=== PATIENT | female | born 1960 | race Caucasian/White ===

== ENCOUNTER 2017-06-20 14:18 | Outpatient (CLI) | payer OTHER ==
--- NOTE | 2017-06-21 09:26 | XRAY Report ---
TWO VIEW ABDOMEN: 06/20/2017 CLINICAL INDICATION: Pain. Supine and upright views of the abdomen demonstrate a normal bowel gas pattern. No free intraperiton eal gas is seen. No abnormal calcifications are appreciated overlying either renal shadow. IMPRESSION: NO EVIDENCE OF BOWEL OBSTRUCTION OR PERFORATION. JOB #: [id number] EXT JOB #:[id number]
== END 2017-06-20 14:19 | disposition home or self-care (01) ==
LOC: DI.S 14:18
PROVIDERS: ATTEND Internal Medicine
DX: R10.9 Unspecified abdominal pain (principal)
CPT/HCPCS: 74020

== ENCOUNTER 2019-09-17 04:06 | Emergency (ER) | payer OTHER ==
--- NOTE | 2019-09-17 04:15 | ED Physician Documentation ---
History of Present Illness - Stated complaint Stated Complaint: CP/BK PX/CHILLS - Chief complaint Chief Complaint: Cardiac - Additonal information Additional information: This is a 58-year-old female with a history of recurrent UTIs, diabetes, who presents with cough, malaise, and chest discomfort. Patient states that she began developing her symptoms 3 to 4 days ago, she has had a dry cough, and over the last several days has developed some pain underneath her bilateral breasts and in the lower sternum. She states it feels like she has a chest cold, and she is concerned she may have pneumonia. She denies any history of blood clots or [place] in the past. No vomiting, no shortness of breath. No leg swelling. She was treated for UTI with Bactrim this last week, she has some mild back discomfort and she wants to make sure that her urinary tract infection has not spread to her kidneys. She denies fever. Review of Systems Constitutional: denies: Fever Nose: reports: Congestion Cardiac: reports: Chest pain / pressure Respiratory: reports: Cough. denies: Dyspnea GI: denies: Vomiting : denies: Dysuria Skin: denies: Rash Endocrine: reports: Other (diabetes) PD PAST MEDICAL HISTORY - Past Medical History Cardiovascular: Hypertension Respiratory: Other Endocrine/Autoimmune: Type 2 diabetes GI: GERD, Colon polyps, Diverticulitis : None HEENT: None Psych: None Musculoskeletal: None Derm: None - Past Surgical History Past Surgical History: Yes General: Colonoscopy, EGD Ortho: Other HEENT: Tonsil/Adenoidectomy - Present Medications Home Medications: Ambulatory Orders Medication Instructions Recorded Confirmed Alprazolam [Xanax] 0.5 - 1 mg PO Q4H PRN 02/10/14 09/17/19 Atenolol 50 mg PO BID 02/10/14 09/17/19 hydroCHLOROthiazide [Hydrodiuril] 25 mg PO DAILY 02/10/14 09/17/19 Liraglutide [Victoza 2-Raul] 1.2 mg SQ DAILY 10/15/16 09/17/19 Beclomethasone 80 Mcg [Qvar 80] 2 puffs IH BID 09/17/19 09/17/19 Celecoxib 200 mg PO DAILY 09/17/19 09/17/19 Cranberry 500 mg PO DAILY 09/17/19 09/17/19 Dicyclomine HCl 10 mg PO BID 09/17/19 09/17/19 Estradiol [Estrace] 0.1 mg [id number] DAILY 09/17/19 09/17/19 Mag Carb/Al Hydrox/Alginic AC 355 ml PO DAILY PRN 09/17/19 09/17/19 [Gaviscon Extra Strength Liquid] Menthol [Biofreeze] 1 applic TOP DAILY 09/17/19 09/17/19 Methenamine Hippurate 1 gm PO BID 09/17/19 09/17/19 Sucralfate 1 gm PO DAILY PRN 09/17/19 09/17/19 Tizanidine HCl 4 mg PO TID PRN 09/17/19 09/17/19 amLODIPine [Norvasc] 10 mg PO DAILY 09/17/19 09/17/19 diphenhydrAMINE [Benadryl] 25 mg PO Q8HR PRN 09/17/19 09/17/19 - Allergies Allergies/Adverse Reactions: Allergies Allergy/AdvReac Type Severity Reaction Status Date / Time Opioids - Morphine Analogues Allergy Nausea Verified 09/17/19 04:16 oxycodone Allergy Nausea Verified 09/17/19 04:16 aspirin AdvReac Nausea Verified 09/17/19 04:16 pollen Allergy Intermediate Itching Uncoded 09/17/19 04:16 - Social History Does the pt smoke?: No Smoking Status: Never smoker PD ED PE NORMAL - Vitals Vital signs reviewed: Yes - General General: Alert and oriented X 3, No acute distress - HEENT HEENT: PERRL - Neck Neck: Supple, no meningeal sign - Cardiac Cardiac: RRR - Respiratory Respiratory: Clear bilaterally - Abdomen Abdomen: Soft, Non tender, Non distended - Derm Derm: Warm and dry - Extremities Extremities: No deformity - Neuro Neuro: Alert and oriented X 3 - Psych Psych: Normal mood, Normal affect Results - Vitals Vitals: Vital Signs - 24 hr 09/17/19 09/17/19 04:10 05:32 Temperature 36.5 C Heart Rate 88 75 Respiratory 16 18 Rate Blood Pressure 182/81 H 160/61 H O2 Saturation 99 96 Oxygen O2 Source Room air - EKG (time done) 4:16 Other comments: Other comments (Rate 84, rhythm sinus, there is left axis deviation. Left ventricular hypertrophy present by voltage criteria and aVL. No ST segment elevation or depression. QTc 478) - Labs Labs: Laboratory Tests 09/17/19 09/17/19 09/17/19 04:10 04:10 04:10 WBC 7.1 RBC 5.09 Hgb 12.6 Hct 38.9 MCV 76.4 L MCH 24.8 L MCHC 32.4 RDW 14.5 Plt Count 291 MPV 10.5 Neut # (Auto) 3.9 Lymph # (Auto) 2.2 Mclean # (Auto) 0.4 Eos # (Auto) 0.5 Baso # (Auto) 0.1 Absolute Nucleated RBC 0.00 Nucleated RBC % 0.0 Sodium 142 Potassium 3.3 L Chloride 103 Carbon Dioxide 27 Anion Gap 12.0 BUN 29 H Creatinine 0.9 Estimated GFR (MDRD) 64 L Glucose 145 H Calcium 10.5 H Total Bilirubin 0.6 AST 19 ALT 27 Alkaline Phosphatase 59 Troponin I High Sens 3.5 Total Protein 8.2 Albumin 4.8 Globulin 3.4 Albumin/Globulin Ratio 1.4 Lipase 42 Urine Color Urine Clarity Urine pH Ur Specific [place] Urine Protein Urine Glucose (UA) Urine Ketones Urine Occult Blood Urine Nitrite Urine Bilirubin Urine Urobilinogen Ur Leukocyte Esterase Ur Microscopic Review 09/17/19 05:12 WBC RBC Hgb Hct MCV MCH MCHC RDW Plt Count MPV Neut # (Auto) Lymph # (Auto) Mclean # (Auto) Eos # (Auto) Baso # (Auto) Absolute Nucleated RBC Nucleated RBC % Sodium Potassium Chloride Carbon Dioxide Anion Gap BUN Creatinine Estimated GFR (MDRD) Glucose Calcium Total Bilirubin AST ALT Alkaline Phosphatase Troponin I High Sens Total Protein Albumin Globulin Albumin/Globulin Ratio Lipase Urine Color YELLOW Urine Clarity CLEAR Urine pH 5.5 Ur Specific [place] <=1.005 Urine Protein NEGATIVE Urine Glucose (UA) NEGATIVE Urine Ketones NEGATIVE Urine Occult Blood NEGATIVE Urine Nitrite NEGATIVE Urine Bilirubin NEGATIVE Urine Urobilinogen 0.2 (NORMAL) Ur Leukocyte Esterase NEGATIVE Ur Microscopic Review NOT INDICATED - Rads (name of study) CXR 2 view Radiology: Other (No acute cardiopulmonary abnormality) PD MEDICAL DECISION MAKING - ED course Complexity details: considered differential (Pneumonia, gastritis, viral syndrome/URI,Peptic ulcer disease, dysrhythmia, ACS, pneumothorax, pulmonary embolism) ED course: On examination patient is nontoxic, vital signs are notable for hypertension. Chest X-rays obtained showing no acute cardiopulmonary abnormality. EKG shows left ventricular hypertrophy without signs of acute ischemia or dysrhythmia. C BC is unremarkable, CMP likewise unrevealing. Patient was given Toradol and Zofran for symptoms. Pulmonary embolism was considered, however the character of patient's chest discomfort, along with no shortness of breath, normal oxygen saturation, normal heart rate, no signs of DVT, no recent immobilization or travel, and no estrogen-containing medications make this extremely unlikely.High-sensitivity troponin is negative, given the duration of patient's symptoms, a single troponin is sufficient And ACS is highly unlikely. Urinalysis shows no signs of infection. Patient has a benign abdominal examination with no specific tenderness, no right upper quadrant tenderness, negative Galvan sign, no sign of biliary pathology. She was given a GI cocktail for her symptoms. Repeat examination patient is feeling somewhat improved, and she is relieved to the results of her tests. I recommended that she follow closely with her primary care provider, that she return to the emergency department with any new or worsening symptoms, such as increasing chest pain, shortness of breath, blood in the sputum, fever, persistent vomiting, or any other concerning symptoms. Patient agreed with this plan was discharged home Departure - Departure Disposition: 01 Home, Self Care Clinical Impression: Chest pain Qualifiers: Chest pain type: unspecified Qualified Code(s): R07.9 - Chest pain, unspecified Condition: Good Instructions: ED Chest Pain Atypical Unkn Cause Follow-Up: Martínez Nick MD [Primary Care Provider] - Within 1 week Comments: You were seen today for pain in your lower chest. Your labs and chest x-ray did not reveal an obvious cause of the pain. Please follow-up with your primary care provider, and return to the emergency department if you develop any worsening pain, shortness of breath, fever, blood in your sputum, persistent vomiting, or any other concerning symptoms. Your blood pressure was high during your visit, which may be due to stress of being in the ED. Please follow-up with your primary care provider and have your blood pressure checked at your next visit.
[2019-09-17] MEDS ORDERED: ONDANSETRON 4 MG/2 ML VIAL IVP STA (04:16)
[2019-09-17] MEDS ORDERED: KETOROLAC 30 MG/ML VIAL IVP STA (04:16)
[2019-09-17 04:47] LABS: BASOPHILS # (AUTO) 0.1 10^3/uL (0.0-0.1); BASOPHILS % (AUTO) 0.7 %; EOSINOPHILS # (AUTO) 0.5 10^3/uL (0.0-0.7); EOSINOPHILS % (AUTO) 6.9 %; HGB - HEMOGLOBIN 12.6 g/dL (12.0-16.0); LYMPHOCYTES # (AUTO) 2.2 10^3/uL (1.5-3.5); LYMPHOCYTES % (AUTO) 30.7 %; MEAN CORPUSCULAR HEMOGLOBIN 24.8 pg (27.0-31.0); MEAN CORPUSCULAR HGB CONC 32.4 g/dL (32.0-36.0); MEAN CORPUSCULAR VOLUME 76.4 fL (81.0-99.0); MEAN PLATELET VOLUME 10.5 fL (7.9-10.8); MONOCYTES # (AUTO) 0.4 10^3/uL (0.0-1.0); MONOCYTES % (AUTO) 6.1 %; NEUTROPHILS # (AUTO) 3.9 10^3/uL (1.5-6.6); PLT - PLATELET COUNT 291 10^3/uL (130-450); RED BLOOD COUNT 5.09 10^6/uL (4.20-5.40); RED CELL DISTRIBUTION WIDTH 14.5 % (12.0-15.0); WHITE BLOOD COUNT 7.1 x10^3/uL (4.8-10.8)
--- NOTE | 2019-09-17 04:48 | XRAY Report ---
Reason: Cough, chest pain Procedure Date: 09/17/2019 Accession Number: [id number] / [id number] Procedure: XR - Chest 2 View X-Ray CPT Code: 21107 FULL RESULT: EXAM: CHEST RADIOGRAPHY EXAM DATE: 09/17/2019 04:31 AM. CLINICAL HISTORY: Cough, chest pain. COMPARISON: None. TECHNIQUE: 2 views. FINDINGS: Lungs/Pleura: No focal opacities evident. No pleural effusion. No pneumothorax. Normal volumes. Mediastinum: Heart and mediastinal contours are unremarkable. Other: Moderate calcific athero-sclerosis. Moderate degenerative changes in the spine. IMPRESSION: No acute cardiopulmonary abnormality demonstrated. RADIA
[2019-09-17 04:59] LABS: ALBUMIN 4.8 g/dL (3.2-5.5); ALBUMIN/GLOBULIN RATIO 1.4 (1.0-2.2); BILIRUBIN,TOTAL 0.6 mg/dL (0.2-1.0); CALCIUM 10.5 mg/dL (8.5-10.3); CREATININE 0.9 mg/dL (0.4-1.0); TOTAL PROTEIN 8.2 g/dL (6.7-8.2)
[2019-09-17 05:21] LABS: BILIRUBIN,URINE NEGATIVE (NEGATIVE); GLUCOSE, URINE (UA) NEGATIVE (NEGATIVE); KETONES,URINE (UA) NEGATIVE (NEGATIVE); LEUKOCYTE ESTERASE, URINE NEGATIVE (NEGATIVE); NITRITE,URINE NEGATIVE (NEGATIVE); OCCULT BLOOD,URINE NEGATIVE (NEGATIVE); PH,URINE 5.5 PH (5.0-7.5); PROTEIN,URINE NEGATIVE (NEGATIVE); UROBILINOGEN,URINE 0.2 (NORMAL) E.U./dL (NORMAL)
[2019-09-17 05:22] LABS: CLARITY,URINE CLEAR (CLEAR)
[2019-09-17 05:33] VITALS: BP 160/61
[2019-09-17] MEDS ORDERED: LIDOCAINE VISCOUS 2% 15 ML UDC MM STA (05:35)
[2019-09-17] MEDS ORDERED: MAG HYDROX/AL HYDROX/SIMETH 30 ML UDC PO STA (05:35)
== END 2019-09-17 05:45 | disposition home or self-care (01) ==
LOC: ED 04:06
DX: R07.9 Chest pain, unspecified (principal); I10 Essential (primary) hypertension; E11.9 Type 2 diabetes mellitus without complications
CPT/HCPCS: 36415; 71046; 80053; 81003; 83690; 84484; 85025; 93005; 96374; 99283; 99284; A9270; 81001

== ENCOUNTER 2019-10-15 14:42 | Outpatient (CLI) | payer OTHER ==
--- NOTE | 2019-10-15 18:15 | Ultrasound Report ---
Reason: OVARIAN CYST Procedure Date: 10/15/2019 Accession Number: [id number] / [id number] Procedure: US - Pelvic w/Transvaginal CPT Code: Final Report FULL RESULT: EXAM: PELVIC ULTRASOUND EXAM DATE: 10/15/2019 04:36 PM. CLINICAL HISTORY: OVARIAN CYST. COMPARISON: ABDOMEN/PELVIS W/ 07/03/2016 4:06 PM. TECHNIQUE: Realtime transabdominal pelvic scan performed to identify the uterus and adnexa and as an overview of other pelvic structures, followed by transvaginal scan to provide greater detail of the uterus and adnexa, with static image documentation. FINDINGS: Uterus: 7.1 x 2.4 x 4.6 cm, volume 41 cc. Anteverted position. Background echogenicity is unremarkable, however there are at least 2 masses and a focal area of calcification in the anterior uterine body. Masses: Anterior intramural leiomyoma measures 1.5 x 1.2 x 1.7 cm and abuts the endometrial echocomplex, is slightly to the right of midline. A second leiomyoma is in the intramural portion anteriorly, to the left of midline and measures up to 9 mm in diameter. Endometrium: 7 mm. No focal masses or increased vascularity. Cervix: Unremarkable. Right Ovary: 7.0 x 4.0 x 7.8 cm, volume 114 cc. Color Doppler flow is demonstrated, and there is a complex septated cyst measuring 6.6 x 3.5 x 7.1 cm. Best seen transabdominally. The multiple septations are thin. No nodularity is identified. Left Ovary: 4.1 x 3.1 x 7.3 cm, volume 49 cc. A septated cyst is present measuring 3.2 x 3.0 x 7.0 cm. The septations are thicker than the right ovarian cyst, but appear less than 3 mm in thickness. No obvious nodularity. Free Fluid: Trace Other: None. IMPRESSION: 1. Bilateral ovarian cysts, with relatively thin septations, and compared to a CT of the abdomen pelvis from 07/03/2016, they may have slightly increased in size. Based on guidelines, given the size of greater than or equal to 7 cm, despite the thin appearing septations, would recommend dedicated pelvic MRI or surgical evaluation. 2. At least 2 intramural leiomyomas, largest measures up to 1.7 cm. RADIA
== END 2019-10-15 14:43 | disposition home or self-care (01) ==
LOC: DI 14:42
PROVIDERS: ATTEND Obstetrics & Gynecology
DX: N83.202 Unspecified ovarian cyst, left side (principal); N83.201 Unspecified ovarian cyst, right side; D25.1 Intramural leiomyoma of uterus
CPT/HCPCS: 76830; 76856

== ENCOUNTER 2019-10-19 10:27 | Outpatient (CLI) | payer OTHER | END 2019-10-19 10:28 | disposition home or self-care (01) | LOC: LAB 10:27 | PROVIDERS: ATTEND Obstetrics & Gynecology | DX: N83.209 Unspecified ovarian cyst, unspecified side (principal) | CPT/HCPCS: 36415; 82378; 86304 ==

== ENCOUNTER 2019-11-25 09:41 | Outpatient (CLI) | payer OTHER ==
--- NOTE | 2019-11-25 10:22 | XRAY Report ---
Reason: UNSPECIFIED OVARIAN CYST, UNSPECIFIED SIDE Procedure Date: 11/25/2019 Accession Number: [id number] / [id number] Procedure: XR - Chest 2 View X-Ray CPT Code: 90653 Final Report FULL RESULT: EXAM: CHEST RADIOGRAPHY EXAM DATE: 11/25/2019 10:12 AM. CLINICAL HISTORY: Unspecified ovarian cyst, unspecified side. Preoperative radiograph. COMPARISON: CHEST 2 VIEW 09/17/2019 4:20 AM. TECHNIQUE: 2 views. FINDINGS: Lungs/Pleura: No focal opacities evident. No pleural effusion. No pneumothorax. Normal volumes. Mediastinum: Heart and mediastinal contours are stable with subtle calcifications of the aortic arch and no cardiomegaly. Other: None. IMPRESSION: No acute cardiopulmonary abnormality. RADIA
--- NOTE | 2019-11-25 11:06 | CONSULTATION NOTE ---
Consultation Report: Anesthesia eval requested for 59F for TLH/LAVH. Pt presents w PSH of L TKA in 2018 in which she states thee were no anesthesia complications. PMH positive for obesity, DM2, GERD (well controlled w/meds), HTN. Pt denies any pulmonary or cardiac history.. EKG is sinus with probable old inferior PR. Pt denies hx of CP, PR, or dizziness, fainting. CBC, CMP, T&S, EKG, and CXR all previously ordered by surgeon, will evaluate DOS. Pt instructed on NPO status prior to surgery, meds to take, and what to expect during pre-op, surgery, and post-op stay. Discussed TAP blocks as a possible pain management plan. Pt did not have any further questions at this time.
== END 2019-11-25 09:42 | disposition home or self-care (01) ==
LOC: LAB 09:41 → DI 09:42
PROVIDERS: ATTEND Obstetrics & Gynecology
DX: Z01.818 Encounter for other preprocedural examination (principal); N83.202 Unspecified ovarian cyst, left side; N83.201 Unspecified ovarian cyst, right side
CPT/HCPCS: 36415; 71046; 80053; 85025; 86850; 86900; 86901; 93005

== ENCOUNTER 2019-11-26 13:30 | Outpatient (CLI) | payer OTHER ==
[2019-11-26 13:47] LABS: BASOPHILS % (AUTO) 0.6 %; EOSINOPHILS # (AUTO) 0.3 10^3/uL (0.0-0.7); EOSINOPHILS % (AUTO) 5.9 %; HGB - HEMOGLOBIN 11.4 g/dL (12.0-16.0); LYMPHOCYTES # (AUTO) 1.4 10^3/uL (1.5-3.5); LYMPHOCYTES % (AUTO) 27.4 %; MEAN CORPUSCULAR HEMOGLOBIN 24.2 pg (27.0-31.0); MEAN CORPUSCULAR HGB CONC 31.6 g/dL (32.0-36.0); MEAN CORPUSCULAR VOLUME 76.6 fL (81.0-99.0); MEAN PLATELET VOLUME 10.1 fL (7.9-10.8); MONOCYTES # (AUTO) 0.3 10^3/uL (0.0-1.0); MONOCYTES % (AUTO) 6.5 %; PLT - PLATELET COUNT 236 10^3/uL (130-450); RED BLOOD COUNT 4.71 10^6/uL (4.20-5.40); RED CELL DISTRIBUTION WIDTH 14.4 % (12.0-15.0); WHITE BLOOD COUNT 5.1 x10^3/uL (4.8-10.8)
[2019-11-26 14:03] LABS: ALBUMIN 4.1 g/dL (3.2-5.5); ALBUMIN/GLOBULIN RATIO 1.3 (1.0-2.2); BILIRUBIN,TOTAL 0.4 mg/dL (0.2-1.0); CALCIUM 9.2 mg/dL (8.5-10.3); CREATININE 0.6 mg/dL (0.4-1.0); TOTAL PROTEIN 7.2 g/dL (6.7-8.2)
== END 2019-11-26 13:31 | disposition home or self-care (01) ==
LOC: LAB 13:30
PROVIDERS: ATTEND Obstetrics & Gynecology
DX: Z01.812 Encounter for preprocedural laboratory examination (principal); N83.209 Unspecified ovarian cyst, unspecified side
CPT/HCPCS: 36415; 80053; 85025; 86850; 86900; 86901

== ENCOUNTER 2019-11-29 07:02 | Observation (INO) | payer OTHER ==
[2019-11-29] MEDS ORDERED: CEFAZOLIN SODIUM IN 0.9 % NACL 2 GM/100 ML BAG IV ONE (07:16)
[2019-11-29] MEDS ORDERED: LACTATED RINGERS 1,000 ML IV ONE ×2 (07:20→13:25)
--- NOTE | 2019-11-29 08:27 | ANESTHESIA ---
Pre-Anesthesia VS, & Labs - Diagnosis Bilateral ovarian cysts - Procedure Lap hysterectomy Vital Signs: Temp Pulse Resp BP Pulse Ox 36.3 C L 72 18 157/84 H 97 11/29/19 07:20 11/29/19 07:20 11/29/19 07:20 11/29/19 07:20 11/29/19 07:20 Height 5 ft 7 in Weight (kg) 104.8 kg Body Mass Index 36.8 - NPO >8 hours, Other (Had water with pills this am) - Is Patient ?: Not Applicable - Lab Results Current Lab Results: Laboratory Tests 11/29/19 07:40: POC Whole Bld Glucose 124 H Lab results reviewed: Yes Home Medications and Allergies Home Medications: Ambulatory Orders Esomeprazole Magnesium [Nexium] 20 mg PO DAILY 11/25/19 Potassium Chloride 20 meq PO DAILY 11/29/19 Alprazolam [Xanax] 0.5 - 1 mg PO Q4H PRN 02/10/14 Atenolol 50 mg PO BID 02/10/14 hydroCHLOROthiazide [Hydrodiuril] 25 mg PO DAILY 02/10/14 Liraglutide [Victoza 2-Raul] 1.2 mg SQ DAILY 10/15/16 Beclomethasone 80 Mcg [Qvar 80] 2 puffs IH BID 09/17/19 Celecoxib 200 mg PO DAILY 09/17/19 Cranberry 500 mg PO DAILY 09/17/19 Dicyclomine HCl 10 mg PO BID 09/17/19 Estradiol [Estrace] 0.1 mg [id number] DAILY 09/17/19 Mag Carb/Al Hydrox/Alginic AC [Gaviscon Extra Strength Liquid] 355 ml PO DAILY PRN 09/17/19 Menthol [Biofreeze] 1 applic TOP DAILY 09/17/19 Sucralfate 1 gm PO DAILY PRN 09/17/19 Tizanidine HCl 4 mg PO TID PRN 09/17/19 amLODIPine [Norvasc] 10 mg PO DAILY 09/17/19 diphenhydrAMINE [Benadryl] 25 mg PO Q8HR PRN 09/17/19 Esomeprazole Magnesium [Nexium] 20 mg PO DAILY 11/25/19 Potassium Chloride 20 meq PO DAILY 11/29/19 Allergies/Adverse Reactions: Allergies Allergy/AdvReac Type Severity Reaction Status Date / Time amoxicillin AdvReac Nausea Verified 11/29/19 07:37 ibuprofen AdvReac Nausea Verified 11/29/19 07:37 pollen Allergy Intermediate Itching Uncoded 11/29/19 07:37 Anes History & Medical History - Anesthetic History Anesthesia Complications: reports: No previous complications Family history of Anesthesia Complications: Denies Family history of Malignant Hyperthermia: Denies - Medical History Cardiovascular: reports: Hypertension Pulmonary: reports: Other Gastrointestinal: reports: GERD, Colon polyps, Diverticulitis Urinary: reports: None Neuro: reports: None Musculoskeletal: reports: None Endocrine/Autoimmune: reports: Type 2 diabetes Blood Disorders: reports: None Skin: reports: None Smoking Status: Never smoker Psychosocial: reports: No issues indicated - Surgical History General: Colonoscopy, EGD Eyes Ears Nose Throat (EENT): Tonsil/Adenoidectomy Orthopedic: Other Results - EKG Results EKG Comparison: Reviewed EKG Exam General: Alert, Oriented x3, Cooperative Dental: TMJ Mouth Openin Fingerbreadth Neck Mobility: Normal Mallampati classification: II Thyromental Distance: 4-6 cm Respiratory: Lungs clear Cardiovascular: Regular rate Mental/Cognitive Status: Alert/Oriented X3 Cognitive Status: Within normal limits Plan Anesthesia Type: General Consent for Procedure(s) Verified and Reviewed: Yes Code Status: Attempt Resuscitation ASA classification: 3-Severe systemic disease Is this case an emergency?: No
[2019-11-29] MEDS ORDERED: SCOPOLAMINE PATCH TOP ONE (09:02)
[2019-11-29] MEDS ORDERED: ACETAMINOPHEN 1,000 MG/100 ML 100 ML IV ONE ×2 (09:03→09:32)
[2019-11-29] MEDS ORDERED: CELECOXIB 100 MG CAPSULE PO ONE (09:03)
[2019-11-29] MEDS ORDERED: GABAPENTIN 400 MG CAPSULE ONE (09:03)
[2019-11-29] MEDS ORDERED: BUPIVACAINE 0.5% PF 30 ML VIAL ONE ×2 (09:05→10:15)
[2019-11-29] MEDS ORDERED: METHYLENE BLUE 0.5% 50 MG/10 ML AMPULE ONE (09:06)
[2019-11-29] MEDS ORDERED: GLYCOPYRROLATE 1 MG/5 ML VIAL IVP ONE (09:32)
[2019-11-29] MEDS ORDERED: ONDANSETRON 4 MG/2 ML VIAL IVP ONE (09:32)
[2019-11-29] MEDS ORDERED: ROCURONIUM 50 MG/5 ML VIAL IVP ONE (09:32)
[2019-11-29] MEDS ORDERED: METOCLOPRAMIDE 10 MG/2 ML VIAL IVP ONE (09:32)
[2019-11-29] MEDS ORDERED: fentaNYL 100 MCG/2 ML VIAL IVP ONE (09:32)
[2019-11-29] MEDS ORDERED: NEOSTIGMINE 1 MG/1 ML 10 ML MDV IVP ONE (09:32)
[2019-11-29] MEDS ORDERED: ePHEDrine 50 MG/ML VIAL IVP ONE (09:32)
[2019-11-29] MEDS ORDERED: MIDAZOLAM 2 MG/2 ML VIAL IVP ONE (09:32)
[2019-11-29] MEDS ORDERED: BUPIVACAINE 0.5% PF 30 ML VIAL INFIL ONE ×3 (10:15)
[2019-11-29] MEDS ORDERED: LIDOCAINE MPF 2%-EPI 1:200000 20 ML VIAL ONE (10:15)
[2019-11-29] MEDS ORDERED: LIDOCAINE MPF 2%-EPI 1:200000 20 ML VIAL SUBQ ONE ×3 (10:15)
[2019-11-29] MEDS ORDERED: HYDROmorphone 0.5 MG/0.5 ML SYRINGE IVP PRN (12:47)
[2019-11-29] MEDS ORDERED: ONDANSETRON 4 MG/2 ML VIAL IVP PRN (12:47)
--- NOTE | 2019-11-29 12:52 | OPERATIVE REPORT ---
Operative Report - General Procedure Date: 11/29/19 Planned Procedure: TLH with BSO and Cysto Pre-Op Diagnosis: large septate bilateral ovarian cysts Procedure Performed: TLH with BSO and Cysto Post Op Diagnosis: Same - Procedure Note Primary Surgeon: Donavan Stack MD Secondary Surgeon: Gillian Josue MD Anesthesia Provider: Tobias Neri CRNA Anesthesia Technique: General ET tube Pathology: Uterus with adnexa Pelvic washings IV Fluids (mL): 700 Estimated Blood Loss (mL): 25 Urine Output (mL): 250 Indications: large septated ovaries with negative tumor markers - Other Other Information/Narrative: [id number]
[2019-11-29] MEDS ORDERED: fentaNYL 100 MCG/2 ML VIAL ONE (13:09)
[2019-11-29] MEDS: LACTATED RINGERS 1,000 ML IV SCH ×2 (13:45→20:39)
[2019-11-29] MEDS: oxyCODONE 5 MG TABLET PO PRN ×2 (16:40→20:38)
--- NOTE | 2019-11-29 18:41 | PROCEDURE REPORT ---
DATE OF SERVICE: 11/29/2019 Physician: Donavan Stack MD PREOPERATIVE DIAGNOSIS: Septated bilateral large ovarian cyst. POSTOPERATIVE DIAGNOSES: Septated bilateral large ovarian cyst. PROCEDURE: Total laparoscopic hysterectomy with bilateral salpingo-oophorectomy, pelvic washings, an d cystoscopy. SURGEON: Donavan Stack MD CLEAT THROWER: Radha Josue MD ANESTHESIA: Giulia Neri CRNA ANESTHETIC: General via endotracheal tube. IV FLUIDS: 700 mL. ESTIMATED BLOOD LOSS: 25 mL. URINE OUTPUT: 250 mL. FINDINGS: Upon entering the abdominal cavity, there was no evidence of site of insertion. The appen elisa appeared to be normal. There was no evidence of adhesions in the pelvis. There were two large b ilateral ovarian cysts. The cul-de-sac, as well as the anterior uterine area, did not show evidence of any studding or abnormal-looking fluid. Cystoscopy performed at the end of the case showed eviden ce of good urine flow from both ureteral jets. PROCEDURE: Following adequate endotracheal anesthesia, the patient was placed in dorsal lithotomy po sition in Andrea stirrups. Pelvic examination under anesthesia was unrewarding secondary to abdominal wall thickness. At this point, she was prepped and draped in the usual fashion. A timeout was perf ormed, during which concerns were addressed. A speculum was placed in the vagina. The cervix was vi sualized, grasped with a single-tooth tenaculum. The cervix was somewhat stenotic. However, it was d ilated up to 7 mm. At this point, a small uterine manipulator was placed through the cervical os and then the ring was placed close into the vaginal fornices. The uterine balloon was inflated and then the vaginal balloon was also inflated with 45 mL of air. The accounting machine operator's gloves were then changed an d then a stab wound was made in the subumbilical region with a #11 blade following injection with 0.2 5% Marcaine with epinephrine mixed with 1% lidocaine. A trocar and sheath were introduced on a singl e pass without any difficulty. The pelvis was inspected. There was no evidence of any injury at sit e of insertion. Two additional ports were placed, both in the left and right lower quadrants. These were both done following local anesthesia with lidocaine and Marcaine, and then skin incision with a #11 blade. The pelvis was inspected. The ovaries were noted to be enlarged. The right infundibulopelvic ligame nt was doubly cauterized and transected. The round ligament was immediately encountered and this was doubly cauterized and transected. The anterior leaf of the broad ligament was divided free and then this was cauterized, transected with the LigaSure. This was carried all the way down to the cervix, the internal os of the cervix. Then, the posterior leaf was also cauterized and transected with the LigaSure. Care was taken to avoid any injury to the ureters. Then, traversing across the lower muckleshoot rine segment, a bladder flap was developed utilizing the LigaSure. The contralateral side was treate d in identical fashion. The left infundibulopelvic ligament was operated on by Dr. Josue. The li gament was doubly cauterized and transected with the LigaSure. Then, the broad ligament was cauteriz ed and tracks a second, and the round ligament was doubly cauterized and transected separately. The anterior leaf of the broad ligament was opened and this was cauterized and transected all the way wesley n to the bladder flap, which has been developed from the right-hand side. The posterior leaf was als o transected. The bladder was then pushed off the lower uterine segment and the uterine manipulator was able to be palpated through the vaginal wall. Uterine vessels on the left-hand side were identif ied, cauterized, and transected. The right-hand side was also identified, cauterized, and transected . At this point, the uterus appeared to be free of its vascular attachments. A Harmonic scalpel was th en used to transect the cervix from the apex of the vagina. This was carried all the way around in a circumferential pattern. At this point, the uterus was brought down into the vagina. Both ovaries came at the same time, thus making it difficult for them to remove. So for this reason, the right lo wer quadrant incision was extended and an 11-mm port was placed. The right tube and ovary were place d in the Endo Catch and then left in the abdominal cavity, as it was felt too large to bring through the port. The uterus was then removed and the string of the Endocatch was grasped vaginally and brou ght out through the vagina. That left only the right ovary. This was then grasped and then brought down through the vagina, both with traction as well as pushing from the top. This was brought all th e way out. A suction bulb was then placed in the vagina to maintain pneumoperitoneum. The pedicles were inspected and no bleeding, so the apex of the vagina was closed with V-Loc suture with an Endo S titch. The apex was inspected and there was one additional place of bleeding, which was treated with the LigaSure. This area was inspected. There was no evidence of any bleeding at this time. At this point, the right lower quadrant port was removed and utilizing a RembertoJuni, a single drake ture of 0 Vicryl was placed without difficulty. The CO2 was allowed to escape and all three ports we re then closed subcuticularly with Monocryl. The incisions themselves were closed utilizing Dermabon d. A cystoscopy was performed with sterile saline. The entire bladder cavity was visualized. There was no evidence of any stitches. There was evidence of good jets of urine from both ureteral orific es. At this point, the procedure was terminated. The patient tolerated the procedure well and was t aken to recovery in stable condition. Sponge and needle counts were correct. TD: 11/29/2019 13:05
[2019-11-29] MEDS: atenoloL 25 MG TABLET PO SCH (20:38)
[2019-11-30] MEDS: oxyCODONE 5 MG TABLET PO PRN ×3 (00:36→11:34)
[2019-11-30 07:41] VITALS: BP 162/76
--- NOTE | 2019-11-30 07:42 | PHARMACY PROGRESS NOTE ---
- Best Possible Medication History Admit Date and Time: 11/29/19 1247 Processed by: Nursing Medication History completed: Yes Patient Interview: Completed As the person ultimately responsible for medication therapy, providers are able to order a medication from an existing home medication list in [facility] via the "Reconcile Routine" prior to Confirmation of that medication by business support assistant. Such practice is discouraged except when the physician, in their clinical judg ment, deems that a medical need exists for a medication without regard to previous use.
[2019-11-30] MEDS: atenoloL 25 MG TABLET PO SCH (08:23)
[2019-11-30] MEDS ORDERED: KETOROLAC 30 MG/ML VIAL IVP PRN (08:34)
--- NOTE | 2019-11-30 08:39 | PROVIDER PROGRESS NOTE ---
Subjective - General Admit Date: 11/29/19 Procedure Date: 11/29/19 Post Op Days: 1 Procedure Performed: TLH with BSO and Cysto - Review of Systems Wound/Incisions: positive: Healing well General: positive: No symptoms (Pain 6/10. relaits that she is having good pain control.) HEENT: positive: No symptoms Pulmonary: positive: No symptoms Cardiovascular: positive: No symptoms Gastrointestinal: positive: Flatus Genitourinary: positive: No symptoms Skin: positive: No symptoms Objective - Patient Data Reviewed Vital Signs: Yes Vital Signs: Vital Signs x48h Temp Pulse Resp BP Pulse Ox 11/30/19 07:13 36.6 C 77 18 162/76 H 95 11/30/19 05:30 36.7 C 72 18 138/73 H 93 Weight: Weight 11/28/19 11/29/19 11/30/19 23:59 23:59 23:59 Weight (kg) 104.8 kg Intake & Output: Intake and Output Totals x24h 11/28/19 11/29/19 11/30/19 23:59 23:59 23:59 Intake Total 2510 1600 Output Total 3125 1125 Balance -615 475 - Lab Results Other Lab Results: Lab Results x24hrs 11/29/19 Range/Units 12:42 POC Whole Bld Glucose 155 H (70 - 100) mg/dL - Current Medications Current Medications: Current Medications Generic Name Dose Route Start Last Admin Trade Name Freq PRN Reason Stop Dose Admin Amlodipine Besylate 5 mg 11/30/19 09:00 11/30/19 08:23 Norvasc PO 5 mg DAILY ALLYSSA Administration Atenolol 50 mg 11/29/19 21:00 11/30/19 08:23 Tenormin PO 50 mg BID ALLYSSA Administration Hydrochlorothiazide 25 mg 11/30/19 09:00 11/30/19 08:23 Hydrodiuril PO 25 mg DAILY ALLYSSA Administration Hydromorphone HCl 0.5 mg 11/29/19 12:47 11/29/19 13:10 Dilaudid Inj Syringe IVP 0.4 mg Q30M PRN Administration Breakthrough Pain Lactated Ringer's 1,000 mls @ 100 mls/hr 11/29/19 13:00 11/30/19 07:45 Lr IV Infused .Q10H ALLYSSA Infusion Oxycodone HCl 5 mg 11/29/19 12:47 11/30/19 05:45 Roxicodone PO 5 mg Q4HR PRN Administration PAIN - Physical Exam Wound/Incisions: positive: Healing well General Appearance: positive: No acute distress, Alert Respiratory: positive: Chest non-tender, No respiratory distress, Breath sounds nml Cardiovascular: positive: Regular rate & rhythm, No murmur, No gallop Abdomen: positive: Nml bowel sounds, No distention, Tenderness (mild) Back: negative: CVA tenderness (R), CVA tenderness (L) Extremities: negative: Calf tenderness, Thomas's sign/cords Neurologic/Psychiatric: positive: Oriented x3 Impression/Plan - Problem List Problem List: POD # 1 progressing well. S/P TLH with BSO Pt has not recieved any NSAID since surgery. will give toradol Send home. Discharge Meds Oxycodone 5 mg Celobrex home supply colace home supply RTC one week.
--- NOTE | 2019-11-30 08:47 | Discharge Plan ---
Discharge Plan Problem Reviewed?: Yes Disposition: Home, Self Care Condition: Good Diet: Diabetic Shower Restrictions: No Driving Restrictions: Yes (not while taking narcotics) Weight Bearing: Full Weight No Smoking: If you smoke, Please STOP! Call for help. Follow-up with: Martínez Nick MD [Primary Care Provider] -
[2019-11-30] MEDS ORDERED: amLODIPine 5 MG TABLET PO SCH (09:00)
[2019-11-30] MEDS ORDERED: hydroCHLOROthiazide 25 MG TABLET PO SCH (09:00)
[2019-11-30] MEDS ORDERED: ENOXAPARIN 40 MG/0.4 ML SYRINGE SUBQ SCH (18:00)
== END 2019-11-30 13:01 | disposition home or self-care (01) ==
LOC: SDS 07:02 → MS3 12:47
PROVIDERS: ADMIT Obstetrics & Gynecology; ATTEND Obstetrics & Gynecology
PROC: 0UT24ZZ Resection of Bilateral Ovaries, Percutaneous Endoscopic Approach (ICD-10-PCS; 2019-11-29)
PROC: 0UT74ZZ Resection of Bilateral Fallopian Tubes, Percutaneous Endoscopic Approach (ICD-10-PCS; 2019-11-29)
PROC: 0UT94ZZ Resection of Uterus, Percutaneous Endoscopic Approach (ICD-10-PCS; principal; 2019-11-29 08:30)
DX: N83.292 Other ovarian cyst, left side (principal); N83.291 Other ovarian cyst, right side; N72 Inflammatory disease of cervix uteri; N84.0 Polyp of corpus uteri; D25.1 Intramural leiomyoma of uterus; D25.2 Subserosal leiomyoma of uterus; I10 Essential (primary) hypertension; E11.9 Type 2 diabetes mellitus without complications; Z79.899 Other long term (current) drug therapy
CPT/HCPCS: 58571; 88108; 88305; 88307; A9270; J0131; J0690; J1170; J2765; J3490; J7120

== ENCOUNTER 2020-03-15 16:36 | Outpatient (CLI) | payer OTHER | END 2020-03-15 16:37 | disposition home or self-care (01) | LOC: COV 16:36 | PROVIDERS: ATTEND Family Medicine | DX: R50.9 Fever, unspecified (principal); R05 Cough; M79.10 Myalgia, unspecified site; R19.7 Diarrhea, unspecified | CPT/HCPCS: 81599 ==

== ENCOUNTER 2020-07-12 07:00 | Outpatient (CLI) | payer OTHER | END 2020-07-12 23:59 | disposition home or self-care (01) | LOC: LAB.R 07:00 | PROVIDERS: ATTEND Emergency Medicine | DX: R30.0 Dysuria (principal) | CPT/HCPCS: 87086 ==

== ENCOUNTER 2020-08-18 13:50 | Outpatient (CLI) | payer OTHER ==
--- NOTE | 2020-08-21 11:48 | Mammography Report ---
BILATERAL DIGITAL SCREENING MAMMOGRAM 3D/2D: 08/18/2020 CLINICAL: Routine screening. Comparison is made to exam dated: 07/12/2014 mammogram - [facility]. The tissue of both breasts is predominantly fatty. No significant masses, calcifications, or other findings are seen in either breast. There has been no significant interval change. IMPRESSION: NEGATIVE There is no mammographic evidence of malignancy. A 1 year screening mammogram is recommended. This exam was interpreted at Station ID: [id number]. NOTE: For mammograms, a report in lay terms will be sent to the patient. Approximately 15% of breast malignancies will not be visualized mammographically. In the management of a palpable breast mass, a negative mammogram must not discourage biopsy of a clinically suspicious lesion. Electronically Signed By: Kamila guerrero/[email or web address]:08/18/2020 16:15:25 ACR BI-RADS Category 1: Negative 3341F PARENCHYMAL PATTERN: (F) - The breast(s) demonstrate(s) diffuse fatty replacement. BI-RADS CATEGORY: (1) - 1 RECOMMENDATION: (ANNUAL) - Recommend routine annual screening mammography. [id number] 1 year screening LATERALITY: (B)
== END 2020-08-18 13:51 | disposition home or self-care (01) ==
LOC: DI 13:50
DX: Z12.31 Encounter for screening mammogram for malignant neoplasm of breast (principal)
CPT/HCPCS: 77063; 77067

== ENCOUNTER 2021-07-12 13:08 | Emergency (ER) | payer OTHER ==
--- NOTE | 2021-07-12 14:21 | ED Physician Documentation ---
PD HPI ABD PAIN - Stated complaint Stated Complaint: RIB PX - Chief complaint Chief Complaint: Abd Pain - History obtained from History obtained from: Patient - History of Present Illness Timing - onset: How many days ago (5) Timing - duration: Days (5) Timing - details: Gradual onset (Patient has had 5 days of right upper quadrant abdominal pain and some pain with breathing. She fell backward from a lawn chair 2 days ago and states the pain is worse. She has also had congestion cough and some dyspnea for 4 to 5 days as well.), Still present, Waxing and waning Quality: Cramping, Aching, Pain Location: RUQ Radiation: Chest (right lower chestwall), Right flank Associated symptoms: Nausea, Diarrhea (intermittent), Loss of appetite. No: Fever, Vomiting, Dysuria Similar symptoms before: Has not had sx before (Known prior gallbladder problem with abnormal HIDA scan and they are considering cholecystectomy. However she has not had consistent pain in the right upper quadrant previously.) Recently seen: Not recently seen Review of Systems Constitutional: denies: Fever, Chills Nose: denies: Rhinorrhea / runny nose, Congestion Throat: denies: Sore throat Respiratory: denies: Cough Skin: denies: Rash, Lesions Musculoskeletal: reports: Back pain. denies: Neck pain PD PAST MEDICAL HISTORY - Past Medical History Cardiovascular: Hypertension Respiratory: Other Neuro: None Endocrine/Autoimmune: Type 2 diabetes GI: GERD, Colon polyps, Diverticulitis, Other (gallbladder spasms with abnormal HIDA, plans for CCY in near future. ) : None HEENT: None Psych: None Musculoskeletal: None Derm: None - Past Surgical History Past Surgical History: Yes General: Colonoscopy, EGD Ortho: Other HEENT: Tonsil/Adenoidectomy - Present Medications Home Medications: Ambulatory Orders Medication Instructions Recorded Confirmed ALPRAZolam [Xanax] 0.5 - 1 mg PO Q4H PRN 02/10/14 11/29/19 Atenolol 50 mg PO BID 02/10/14 11/29/19 hydroCHLOROthiazide [Hydrodiuril] 25 mg PO DAILY 02/10/14 11/29/19 Liraglutide [Victoza 2-Raul] 1.2 mg SQ DAILY 10/15/16 11/29/19 Beclomethasone 80 Mcg [Qvar 80] 2 puffs IH BID 09/17/19 11/29/19 Celecoxib 200 mg PO DAILY 09/17/19 11/29/19 Cranberry 500 mg PO DAILY 09/17/19 11/29/19 Dicyclomine HCl 10 mg PO BID 09/17/19 11/29/19 Estradiol [Estrace] 0.1 mg [id number] DAILY 09/17/19 11/29/19 Mag Carb/Al Hydrox/Alginic AC 355 ml PO DAILY PRN 09/17/19 11/29/19 [Gaviscon Extra Strength Liquid] Menthol [Biofreeze] 1 applic TOP DAILY 09/17/19 11/29/19 Sucralfate 1 gm PO DAILY PRN 09/17/19 11/29/19 Tizanidine HCl 4 mg PO TID PRN 09/17/19 11/29/19 amLODIPine [Norvasc] 10 mg PO DAILY 09/17/19 11/29/19 diphenhydrAMINE [Benadryl] 25 mg PO Q8HR PRN 09/17/19 11/29/19 Esomeprazole Magnesium [Nexium] 20 mg PO DAILY 11/25/19 11/29/19 Potassium Chloride 20 meq PO DAILY 11/29/19 11/29/19 oxyCODONE [Roxicodone] 5 mg PO Q4-6H PRN #12 tablet 07/12/21 - Allergies Allergies/Adverse Reactions: Allergies Allergy/AdvReac Type Severity Reaction Status Date / Time pollen extracts Allergy Intermediate SNEEZING Verified 07/12/21 13:44 amoxicillin AdvReac Nausea Verified 07/12/21 13:44 ibuprofen AdvReac Nausea Verified 07/12/21 13:44 - Social History Does the pt smoke?: No Smoking Status: Never smoker Does the pt have substance abuse?: No - POLST Patient has POLST: No PD ED PE NORMAL - Vitals Vital signs reviewed: Yes - General General: Alert and oriented X 3, Well developed/nourished, Other (appears uncomfortable) - Neck Neck: Supple, no meningeal sign, No adenopathy - Cardiac Cardiac: RRR, No murmur - Respiratory Respiratory: Clear bilaterally - Abdomen Abdomen: Normal bowel sounds, Soft, Non distended, No organomegaly (tender RUQ and also lower rib margin right. No CVA tenderness. No skin sensitivity nor rash.) - Derm Derm: Normal color, Warm and dry - Extremities Extremities: Normal ROM s pain, No edema, No calf tenderness / cord - Neuro Neuro: Alert and oriented X 3, No motor deficit, Normal speech Results - Vitals Vitals: Oxygen O2 Source Room air - EKG (time done) 15:31 Rate: Rate (enter#) (71) Rhythm: NSR [place]: Normal Intervals: Normal GA QRS: Normal Ischemia: Normal ST segments. No: ST elevation c/w ischemia, ST depression - Labs Labs: Laboratory Tests 07/12/21 07/12/21 07/12/21 15:06 15:16 15:16 WBC 5.6 RBC 5.30 Hgb 13.7 Hct 41.1 MCV 77.5 L MCH 25.8 L MCHC 33.3 RDW 13.5 Plt Count 230 MPV 10.6 Neut # (Auto) 3.7 Lymph # (Auto) 1.2 L Terry # (Auto) 0.3 Eos # (Auto) 0.3 Baso # (Auto) 0.1 Absolute Nucleated RBC 0.00 Nucleated RBC % 0.0 Sodium 142 Potassium 3.4 L Chloride 99 L Carbon Dioxide 31 Anion Gap 12.0 BUN 11 Creatinine 0.6 Estimated GFR (MDRD) 102 Glucose 135 H Calcium 10.1 Total Bilirubin 0.6 AST 18 ALT 22 Alkaline Phosphatase 57 Troponin I High Sens B-Natriuretic Peptide Total Protein 8.1 Albumin 4.7 Globulin 3.4 Albumin/Globulin Ratio 1.4 Lipase 33 Urine Color YELLOW Urine Clarity CLEAR Urine pH 7.5 Ur Specific [place] 1.015 Urine Protein NEGATIVE Urine Glucose (UA) NEGATIVE Urine Ketones NEGATIVE Urine Occult Blood NEGATIVE Urine Nitrite NEGATIVE Urine Bilirubin NEGATIVE Urine Urobilinogen 0.2 (NORMAL) Ur Leukocyte Esterase NEGATIVE Ur Microscopic Review NOT INDICATED Urine Culture Comments NOT INDICATED Coronavirus (PCR) 07/12/21 07/12/21 07/12/21 15:16 15:16 15:16 WBC RBC Hgb Hct MCV MCH MCHC RDW Plt Count MPV Neut # (Auto) Lymph # (Auto) Terry # (Auto) Eos # (Auto) Baso # (Auto) Absolute Nucleated RBC Nucleated RBC % Sodium Potassium Chloride Carbon Dioxide Anion Gap BUN Creatinine Estimated GFR (MDRD) Glucose Calcium Total Bilirubin AST ALT Alkaline Phosphatase Troponin I High Sens 5.1 B-Natriuretic Peptide 81 Total Protein Albumin Globulin Albumin/Globulin Ratio Lipase Urine Color Urine Clarity Urine pH Ur Specific [place] Urine Protein Urine Glucose (UA) Urine Ketones Urine Occult Blood Urine Nitrite Urine Bilirubin Urine Urobilinogen Ur Leukocyte Esterase Ur Microscopic Review Urine Culture Comments Coronavirus (PCR) NEGATIVE - Rads (name of study) ruq u/s Radiology: Prelim report reviewed (no acute inflammation or problems, per Tech.), See rad report chest xray Radiology: Prelim report reviewed (no acute process), See rad report PD MEDICAL DECISION MAKING - ED course Complexity details: reviewed results, considered differential, d/w patient Departure - Departure Disposition: Home, Self Care Clinical Impression: Right upper quadrant abdominal pain, Right-sided chest wall pain Condition: Stable Record reviewed to determine appropriate education?: Yes Instructions: ED Abdominal Pain Unkn Cause, ED Strain Chest Wall Follow-Up: Martínez Nick MD [Primary Care Provider] - Prescriptions: oxyCODONE [Roxicodone] 5 mg PO Q4-6H PRN #12 tablet PRN Reason: Pain Comments: Your EKG and blood test do not show any signs of heart failure or heart attack. Your chest x-ray shows normal clear lungs without any signs of pneumonia, effusion, rib abnormality. Your ultrasound shows normal-appearing gallbladder so not acute cholecystitis. Blood tests show normal liver and pancreas numbers with no acute inflammation of those. At this point I am not sure the cause of the pain in the belly. The lower chest area may be muscle strain from when you fell. Activity as tolerated. Food as tolerated. Consider an acid reducing medicine such as Maalox or Mylanta or such, in case some of the abdominal pain is irritated stomach. Add oxycodone every 4-6 hours if needed for pain in the short-term given your intolerance to ibuprofen and Tylenol. Follow-up with your primary care if not improved over the next several days. Discharge Date/Time: 07/12/21 18:28
[2021-07-12] MEDS ORDERED: KETOROLAC 15 MG/ML VIAL IVP STA (14:58)
[2021-07-12] MEDS ORDERED: ONDANSETRON 4 MG/2 ML VIAL IVP STA (14:58)
[2021-07-12 15:16] LABS: BILIRUBIN,URINE NEGATIVE (NEGATIVE); GLUCOSE, URINE (UA) NEGATIVE (NEGATIVE); KETONES,URINE (UA) NEGATIVE (NEGATIVE); LEUKOCYTE ESTERASE, URINE NEGATIVE (NEGATIVE); NITRITE,URINE NEGATIVE (NEGATIVE); OCCULT BLOOD,URINE NEGATIVE (NEGATIVE); PH,URINE 7.5 PH (5.0-7.5); PROTEIN,URINE NEGATIVE (NEGATIVE); UROBILINOGEN,URINE 0.2 (NORMAL) E.U./dL (NORMAL)
[2021-07-12 15:17] LABS: CLARITY,URINE CLEAR (CLEAR)
--- NOTE | 2021-07-12 15:24 | XRAY Report ---
PROCEDURE: Chest 2 View X-Ray INDICATIONS: right lower chest pain for days TECHNIQUE: 2 views of the chest. COMPARISON: 11/25/2019. FINDINGS: Surgical changes and devices: None. Lungs and pleura: No acute consolidation. There are linear opacities redemonstrated in the right emanuel g base compatible with scarring. No pleural effusions or pneumothorax. Mediastinum: Mediastinal contours are unchanged. Heart size is normal. Bones and chest wall: No suspicious bony abnormalities. Soft tissues appear unremarkable. IMPRESSION: 1. No acute cardiopulmonary disease. Reviewed by: Riccardo Peralta MD on 07/12/2021 3:22 PM PDT Approved by: Riccardo Peralta MD on 07/12/2021 3:22 PM PDT Station ID: [id number]
[2021-07-12 15:33] LABS: BASOPHILS # (AUTO) 0.1 10^3/uL (0.0-0.1); BASOPHILS % (AUTO) 1.1 %; EOSINOPHILS # (AUTO) 0.3 10^3/uL (0.0-0.7); EOSINOPHILS % (AUTO) 4.8 %; HCT - HEMATOCRIT 41.1 % (37.0-47.0); HGB - HEMOGLOBIN 13.7 g/dL (12.0-16.0); LYMPHOCYTES # (AUTO) 1.2 10^3/uL (1.5-3.5); LYMPHOCYTES % (AUTO) 21.7 %; MEAN CORPUSCULAR HEMOGLOBIN 25.8 pg (27.0-31.0); MEAN CORPUSCULAR HGB CONC 33.3 g/dL (32.0-36.0); MEAN CORPUSCULAR VOLUME 77.5 fL (81.0-99.0); MEAN PLATELET VOLUME 10.6 fL (7.9-10.8); MONOCYTES # (AUTO) 0.3 10^3/uL (0.0-1.0); MONOCYTES % (AUTO) 5.2 %; NEUTROPHILS # (AUTO) 3.7 10^3/uL (1.5-6.6); NEUTROPHILS % (AUTO) 66.5 %; PLT - PLATELET COUNT 230 10^3/uL (130-450); RED CELL DISTRIBUTION WIDTH 13.5 % (12.0-15.0); WHITE BLOOD COUNT 5.6 x10^3/uL (4.8-10.8)
[2021-07-12 15:44] LABS: ALBUMIN 4.7 g/dL (3.2-5.5); ALBUMIN/GLOBULIN RATIO 1.4 (1.0-2.2); BILIRUBIN,TOTAL 0.6 mg/dL (0.2-1.0); CALCIUM 10.1 mg/dL (8.5-10.3); CREATININE 0.6 mg/dL (0.4-1.0); POTASSIUM 3.4 mmol/L (3.5-5.0); TOTAL PROTEIN 8.1 g/dL (6.7-8.2)
--- NOTE | 2021-07-12 18:20 | Ultrasound Report ---
PROCEDURE: Abdomen Limited INDICATIONS: RUQ pain; prior known GB problem TECHNIQUE: Real-time scanning was performed of the right abdomen, with image documentation. COMPARISON: CT abdomen and pelvis 07/03/2016. FINDINGS: Liver: Enlarged in size. Increased in echogenicity. Gallbladder: Gallbladder is nondistended. No stones or sludge. No gallbladder wall thickening. No per icholecystic fluid. Negative sonographic Galvan sign. Biliary ducts: Intrahepatic bile ducts are non-dilated. Extrahepatic bile duct caliber measures 3 m m. Normal is 6-7 mm or less in diameter, or 10 mm or less post-cholecystectomy. Pancreas: Visualized portions of the pancreas are sonographically normal. Tail was not well seen. Spleen: Spleen is normal in size and homogeneous in echotexture. Right kidney: Measures 12.3 cm. Cortex 1.5 cm. Caliectasis. Mild prominence of the renal pelvis. -Right kidney echogenic mass measuring 1.1 x 1.1 x 1 cm. -Right kidney superior pole hypoechoic cyst measuring 1.5 x 1.4 x 1.1 cm. No internal vascularity. IMPRESSION: 1. No acute cholecystitis. No gallstones. 2. Enlarged liver. Increased echogenicity of the hepatic parenchyma. This is most commonly seen in he patic steatosis. Other forms of hepatocellular disease could have a similar appearance. 3. Right kidney have a complex cyst measuring 1.5 cm. 4. Right kidney echogenic mass measuring 1.1 cm. Suspect angiomyolipoma. Consider further characterization of the kidneys with renal protocol MRI or CT. Reviewed by: Ramon Benavides MD on 07/12/2021 6:18 PM PDT Approved by: Ramon Benavides MD on 07/12/2021 6:18 PM PDT Station ID: [id number]
[2021-07-12 18:23] VITALS: BP 180/74
== END 2021-07-12 18:28 | disposition home or self-care (01) ==
LOC: ED 13:08
DX: R10.11 Right upper quadrant pain (principal); R07.89 Other chest pain; Z20.822 Contact with and (suspected) exposure to COVID-19
CPT/HCPCS: 36415; 80053; 81001; 81003; 83690; 83880; 84484; 85025; 87086; 93005; 96374; 96375; 99284

== ENCOUNTER 2021-12-18 08:00 | Outpatient (CLI) | payer OTHER ==
[2021-12-18 15:39] LABS: BILIRUBIN,URINE NEGATIVE (NEGATIVE); GLUCOSE, URINE (UA) NEGATIVE (NEGATIVE); KETONES,URINE (UA) NEGATIVE (NEGATIVE); LEUKOCYTE ESTERASE, URINE NEGATIVE (NEGATIVE); NITRITE,URINE NEGATIVE (NEGATIVE); OCCULT BLOOD,URINE NEGATIVE (NEGATIVE); PROTEIN,URINE NEGATIVE (NEGATIVE); UROBILINOGEN,URINE 0.2 (NORMAL) E.U./dL (NORMAL)
[2021-12-18 15:50] LABS: BACTERIA,URINE Moderate /HPF (None Seen); CLARITY,URINE CLEAR (CLEAR); RBC,URINE None Seen /HPF (0-5); SQUAMOUS EPITHELIAL CELL,UR MANY Squamous (<= Few); WBC,URINE 0-3 /HPF (0-5)
== END 2021-12-18 23:59 | disposition home or self-care (01) ==
LOC: LAB.S 08:00
PROVIDERS: ATTEND Emergency Medicine
DX: R30.0 Dysuria (principal)
CPT/HCPCS: 81001; 87086

== ENCOUNTER 2022-04-17 10:39 | Outpatient (CLI) | payer OTHER ==
--- NOTE | 2022-04-17 13:42 | Mammography Report ---
BILATERAL DIGITAL SCREENING MAMMOGRAM 3D/2D: 04/17/2022 CLINICAL: Routine screening. Comparison is made to exams dated: 08/18/2020 mammogram, 07/12/2014 mammogram, and 06/25/2012 mammogram - [facility]. The tissue of both breasts is predominantly fatty. No significant masses, calcifications, or other findings are seen in either breast. There has been no significant interval change. IMPRESSION: NEGATIVE There is no mammographic evidence of malignancy. A 1 year screening mammogram is recommended. This exam was interpreted at Station ID: [id number]. NOTE: For mammograms, a report in lay terms will be sent to the patient. Approximately 15% of breast malignancies will not be visualized mammographically. In the management of a palpable breast mass, a negative mammogram must not discourage biopsy of a clinically suspicious lesion. Electronically Signed By: Ramon Benavides M.D. slc/penrad:04/17/2022 12:20:33 ACR BI-RADS Category 1: Negative 3341F PARENCHYMAL PATTERN: (F) - The breast(s) demonstrate(s) diffuse fatty replacement. BI-RADS CATEGORY: (1) - 1 RECOMMENDATION: (ANNUAL) - Recommend routine annual screening mammography. [id number] 1 year screening LATERALITY: (B)
== END 2022-04-17 10:40 | disposition home or self-care (01) ==
LOC: DI.S 10:39
PROVIDERS: ATTEND Nurse Practitioner Family
DX: Z12.31 Encounter for screening mammogram for malignant neoplasm of breast (principal)

== ENCOUNTER 2022-06-28 14:05 | Outpatient (CLI) | payer OTHER ==
[2022-06-28 19:42] LABS: BASOPHILS # (AUTO) 0.1 10^3/uL (0.0-0.1); EOSINOPHILS # (AUTO) 0.3 10^3/uL (0.0-0.7); EOSINOPHILS % (AUTO) 6.1 %; HCT - HEMATOCRIT 36.3 % (37.0-47.0); HGB - HEMOGLOBIN 12.5 g/dL (12.0-16.0); LYMPHOCYTES # (AUTO) 1.6 10^3/uL (1.5-3.5); MEAN CORPUSCULAR HEMOGLOBIN 26.9 pg (27.0-31.0); MEAN CORPUSCULAR HGB CONC 34.4 g/dL (32.0-36.0); MEAN CORPUSCULAR VOLUME 78.1 fL (81.0-99.0); MEAN PLATELET VOLUME 11.3 fL (7.9-10.8); MONOCYTES # (AUTO) 0.3 10^3/uL (0.0-1.0); MONOCYTES % (AUTO) 5.7 %; NEUTROPHILS # (AUTO) 2.7 10^3/uL (1.5-6.6); NEUTROPHILS % (AUTO) 54.8 %; PLT - PLATELET COUNT 203 10^3/uL (130-450); RED BLOOD COUNT 4.65 10^6/uL (4.20-5.40); RED CELL DISTRIBUTION WIDTH 13.2 % (12.0-15.0); WHITE BLOOD COUNT 4.9 x10^3/uL (4.8-10.8)
[2022-06-28 19:58] LABS: % IRON SATURATION 10 % (20-50); IRON 41 ug/dL (28-170); TOTAL IRON BINDING CAPACITY 400 ug/dL (250-450); TRANSFERRIN 286 mg/dL (192-382)
[2022-06-28 21:14] LABS: ESTIMATED AVERAGE GLUCOSE 126 mg/dL (70-100)
== END 2022-06-28 14:06 | disposition home or self-care (01) ==
LOC: LAB.S 14:05
PROVIDERS: ATTEND Nurse Practitioner Family
DX: D50.9 Iron deficiency anemia, unspecified (principal); E11.9 Type 2 diabetes mellitus without complications
CPT/HCPCS: 36415; 82728; 83036; 83540; 84466; 85025

== ENCOUNTER 2022-08-08 08:00 | Outpatient (CLI) | payer OTHER | END 2022-08-08 23:59 | disposition home or self-care (01) | LOC: LAB.S 08:00 | PROVIDERS: ATTEND Physician Assistant Medical | DX: R30.0 Dysuria (principal) | CPT/HCPCS: 87086 ==

== ENCOUNTER 2022-08-08 13:28 | Outpatient (CLI) | payer OTHER ==
[2022-08-08 15:36] LABS: BASOPHILS # (AUTO) 0.1 10^3/uL (0.0-0.1); BASOPHILS % (AUTO) 0.7 %; EOSINOPHILS # (AUTO) 0.2 10^3/uL (0.0-0.7); EOSINOPHILS % (AUTO) 3.2 %; HCT - HEMATOCRIT 40.5 % (37.0-47.0); HGB - HEMOGLOBIN 13.2 g/dL (12.0-16.0); LYMPHOCYTES # (AUTO) 1.2 10^3/uL (1.5-3.5); LYMPHOCYTES % (AUTO) 16.5 %; MEAN CORPUSCULAR HEMOGLOBIN 25.7 pg (27.0-31.0); MEAN CORPUSCULAR HGB CONC 32.6 g/dL (32.0-36.0); MEAN CORPUSCULAR VOLUME 78.9 fL (81.0-99.0); MEAN PLATELET VOLUME 10.6 fL (7.9-10.8); MONOCYTES # (AUTO) 0.3 10^3/uL (0.0-1.0); MONOCYTES % (AUTO) 4.6 %; NEUTROPHILS # (AUTO) 5.4 10^3/uL (1.5-6.6); NEUTROPHILS % (AUTO) 74.3 %; PLT - PLATELET COUNT 264 10^3/uL (130-450); RED BLOOD COUNT 5.13 10^6/uL (4.20-5.40); RED CELL DISTRIBUTION WIDTH 13.3 % (12.0-15.0); WHITE BLOOD COUNT 7.2 x10^3/uL (4.8-10.8)
[2022-08-08 16:50] LABS: ALBUMIN 4.6 g/dL (3.2-5.5); ALBUMIN/GLOBULIN RATIO 1.4 (1.0-2.2); BILIRUBIN,TOTAL 0.5 mg/dL (0.2-1.0); CALCIUM 10.3 mg/dL (8.5-10.3); CREATININE 0.6 mg/dL (0.4-1.0); POTASSIUM 3.4 mmol/L (3.5-5.0); TOTAL PROTEIN 7.9 g/dL (6.7-8.2)
== END 2022-08-08 13:29 | disposition home or self-care (01) ==
LOC: LAB.S 13:28
PROVIDERS: ATTEND Physician Assistant Medical
DX: R53.83 Other fatigue (principal); R53.81 Other malaise; R50.9 Fever, unspecified
CPT/HCPCS: 36415; 80053; 85025

== ENCOUNTER 2022-09-30 08:00 | Outpatient (CLI) | payer OTHER | END 2022-09-30 23:59 | disposition home or self-care (01) | LOC: LAB.S 08:00 | PROVIDERS: ATTEND Physician Assistant Medical | DX: N30.90 Cystitis, unspecified without hematuria (principal) | CPT/HCPCS: 87086; 87181 ==

== ENCOUNTER 2023-05-27 08:00 | Outpatient (CLI) | payer OTHER ==
--- NOTE | 2023-05-27 12:20 | XRAY Report ---
PROCEDURE: Nasal Bones INDICATIONS: FACIAL CONTUSION TECHNIQUE: 3 views of the nasal bones acquired. COMPARISON: None FINDINGS: Bones: No fractures or dislocations. Nasal septum is midline. Normal nasociliary nerve grooves are noted. Soft tissues: No suspicious soft tissue calcifications. IMPRESSION: No acute fracture. No osseous lesion. If symptoms and/or clinical suspicion for pathology continue, f urther assessment with repeat plain films, or advanced imaging (e.g., CT, MRI, or bone scan) is recom mended for further assessment. Reviewed by: Devorah Zaidi MD on 05/27/2023 12:19 PM PDT Approved by: Devorah Zaidi MD on 05/27/2023 12:19 PM PDT Station ID: [id number]
== END 2023-05-27 23:59 | disposition home or self-care (01) ==
LOC: DI.S 08:00
PROVIDERS: ATTEND Physician Assistant Medical
DX: S00.83XA Contusion of other part of head, initial encounter (principal); N30.90 Cystitis, unspecified without hematuria
CPT/HCPCS: 87086; 87181

== ENCOUNTER 2024-07-16 12:04 | Outpatient (CLI) | payer OTHER ==
[2024-07-16 20:21] LABS: ALBUMIN 4.5 g/dL (3.2-5.5); ALBUMIN/GLOBULIN RATIO 1.8 (1.0-2.2); BILIRUBIN,TOTAL 0.6 mg/dL (0.2-1.0); CALCIUM 10.1 mg/dL (8.5-10.3); CREATININE 0.7 mg/dL (0.6-1.3); POTASSIUM 3.7 mmol/L (3.5-4.5)
[2024-07-16 20:28] LABS: BASOPHILS # (AUTO) 0.1 10^3/uL (0.0-0.1); BASOPHILS % (AUTO) 1.2 %; EOSINOPHILS # (AUTO) 0.3 10^3/uL (0.0-0.7); EOSINOPHILS % (AUTO) 7.2 %; HCT - HEMATOCRIT 43.1 % (37.0-47.0); HGB - HEMOGLOBIN 13.8 g/dL (12.0-16.0); LYMPHOCYTES # (AUTO) 1.1 10^3/uL (1.5-3.5); LYMPHOCYTES % (AUTO) 25.5 %; MEAN CORPUSCULAR HEMOGLOBIN 26.3 pg (27.0-31.0); MEAN CORPUSCULAR VOLUME 82.3 fL (81.0-99.0); MEAN PLATELET VOLUME 11.3 fL (7.9-10.8); MONOCYTES # (AUTO) 0.3 10^3/uL (0.0-1.0); MONOCYTES % (AUTO) 7.9 %; NEUTROPHILS # (AUTO) 2.5 10^3/uL (1.5-6.6); PLT - PLATELET COUNT 212 10^3/uL (130-450); RED BLOOD COUNT 5.24 10^6/uL (4.20-5.40); RED CELL DISTRIBUTION WIDTH 13.1 % (12.0-15.0); WHITE BLOOD COUNT 4.3 x10^3/uL (4.8-10.8)
[2024-07-16 21:15] LABS: ESTIMATED AVERAGE GLUCOSE 114 mg/dL (70-100); HEMOGLOBIN A1c% 5.6 % (4.27-6.07)
== END 2024-07-16 12:05 | disposition home or self-care (01) ==
LOC: LAB.S 12:04
PROVIDERS: ATTEND Emergency Medicine
DX: R11.2 Nausea with vomiting, unspecified (principal)
CPT/HCPCS: 36415; 80053; 83036; 83540; 83690; 84466; 85025; 87077; 87086; 87181